=== PATIENT | male | born 1970 | race Caucasian/White ===

== ENCOUNTER → 2024-10-27 08:32 | Outpatient (CLI) | payer OTHER, MEDICAID, SELFPAY ==
--- NOTE | 2024-10-27 08:36 | DI.US.S_ITS ---
PROCEDURE: US SCROTUM INDICATIONS: TESTICULAR PAIN. RIGHT LOWER QUADRANT PAIN - ?HERNIA TECHNIQUE: Real-time scanning was performed of the scrotum and testicles, with image documentation. Color and pulse Doppler interrogation was performed of both testicles. COMPARISON: None. FINDINGS: Right: Testicle is normal in size at 3.8 x 2.6 x 2.2 cm, and homogenous in echotexture. Epididymis is normal in overall size and morphology. No hydrocele or varicoceles. Overlying scrotal skin is normal in thickness. No evidence of inguinal hernia. Left: Testicle is normal in size at 4.0 x 3.0 x 2.1 cm, and homogeneous in echotexture. Epididymis is normal in overall size and morphology. Coarse calcifications within the left epididymal head. No hydrocele or varicoceles. Overlying scrotal skin is normal in thickness. No evidence of inguinal hernia. Doppler: Color and pulse Doppler demonstrate normal and symmetric arterial flow in both testicles. IMPRESSION: Coarse calcifications within the left epididymal head, probably posttraumatic. Otherwise, no findings to explain the patient's testicular pain. No sonographic evidence of hernia. Dictated by: Regan Gonzalez M.D. on 10/27/2024 at 14:40 Approved by: Regan Gonzalez M.D. on 10/27/2024 at 14:41
== END ==
PROVIDERS: PCP Physician Assistant; Referring Provider Physician Assistant; Visit Provider Physician Assistant
DX: R10.31 Right lower quadrant pain (principal); N50.819 Testicular pain, unspecified
CPT/HCPCS: 76870; 93975